=== PATIENT | male | born 1935 | race Caucasian/White ===

== ENCOUNTER 2017-12-16 09:59 | Emergency (ER) | payer OTHER, BC ==
[~2017-12-16] VITALS: Ht 180.3 cm; Wt 98.3 kg
[~2017-12-16 09:59] MED LIST: ASPIR 8181 M1 PO; CIPRO500 M1 PO; ENDOCET 5-3251 EACH PO; LIDODERM 5% P1 PATCH TD; MEDROL DOSEPAK4 MG PO; NORVASC5 MG PO; OMEPRAZOLE20 M1 PO; PROPOXYPHEN-AP1 EAC2 PO; TRAMADOL HCL50 MG PO
[2017-12-16] MEDS ORDERED: PERCOCET 5/31 TABLET PO (12:41)
[2017-12-16] MEDS ORDERED: FLEXERIL10 MG PO (12:41)
[2017-12-16] MEDS ORDERED: MEDROL DOSEPAK4 MG PO (12:41)
[2017-12-16 13:05] VITALS: BP 146/92
== END 2017-12-16 13:09 | disposition home or self-care (01) ==
LOC: EME 09:59
DX: M54.16 Radiculopathy, lumbar region (principal); K21.9 Gastro-esophageal reflux disease without esophagitis
CPT/HCPCS: 72131; 99281; 99284; J3010; J7512